=== PATIENT | female | born 1995 | race African-American/Black ===

== ENCOUNTER 2016-09-25 09:19 | Emergency (ER) | payer MEDICAID | END 2016-09-25 11:25 | disposition home or self-care (01) | LOC: D.ER 09:19 | DX: O20.0 Threatened abortion (principal); Z3A.01 Less than 8 weeks gestation of pregnancy ==

== ENCOUNTER 2016-09-28 10:30 | Emergency (ER) | payer MEDICAID | END 2016-09-28 12:18 | disposition home or self-care (01) | LOC: D.ER 10:30 | DX: O02.1 Missed abortion (principal) ==

== ENCOUNTER 2016-11-17 23:08 | Emergency (ER) | payer MEDICAID ==
[2016-11-17 23:56] LABS: APPEARANCE HAZY (CLEAR); BACTERIA NONE SEEN /hpf (NONE SEEN); BILIRUBIN NEGATIVE (NEGATIVE); COLOR PINK (YELLOW); EPITHELIAL CELLS RARE /hpf (0-5); GLUCOSE NEGATIVE (NEGATIVE); KETONE SMALL mg/dL (NEGATIVE); LEUKOCYTE ESTERASE NEGATIVE (NEGATIVE); NITRITE NEGATIVE (NEGATIVE); PROTEIN NEGATIVE (NEGATIVE); RED CELLS - URINE >50 /hpf (0-5); UROBILINOGEN NORMAL (NORMAL); WHITE CELLS - URINE 0-5 /hpf (0-5)
[2016-11-18 00:05] LABS: EOSINOPHILS 3.8 % (0-7); HEMOGLOBIN 12.1 g/dL (12-16); IMMATURE GRANULOCYTES 0.2 % (0-5); LYMPHOCYTES 40.2 % (15-50); MCH 28.5 pg (26.0-34.0); MCHC 33.6 g/dL (31.0-37.0); MCV 84.7 fL (80.0-100.0); MEAN PLATELET VOLUME 9.9 fL (7.4-10.4); NEUTROPHILS 42.8 % (40-80); RBC 4.25 10x6/uL (4.00-5.40); RDW 12.2 % (11.5-14.5); WBC 5.8 10x3/uL (4.8-10.8)
[2016-11-18 00:06] LABS: PLATELET COUNT 240 10x3/uL (130-400)
[2016-11-18 00:33] LABS: ALKALINE PHOSPHATASE 61 U/L (46-116); ALT (SGPT) 15 U/L (10-68); CALC OSMOLALITY 275 mosm/kg (275-300); CALCIUM 9.2 mg/dL (8.5-10.1); CARBON DIOXIDE 26.8 mmol/L (21.0-32.0); CHLORIDE - SERUM 104 mmol/L (98-107); CREATININE - SERUM 0.8 mg/dL (0.6-1.3); GLUCOSE 92 mg/dL (74-106); POTASSIUM - SERUM 3.8 mmol/L (3.5-5.1); PROTEIN - SERUM 7.5 g/dL (6.4-8.2); SODIUM 138 mmol/L (136-145); UREA NITROGEN 12 mg/dL (7-18); eGFR NON AFRICAN AMERICAN > 90 mL/min (90-120)
[2016-11-18 00:46] LABS: HCG - QUANTITATIVE (MATERNAL) 169 mIU/mL
== END 2016-11-18 03:36 | disposition home or self-care (01) ==
LOC: D.ER 23:08
PROVIDERS: Emergency Medicine
DX: N93.9 Abnormal uterine and vaginal bleeding, unspecified (principal); F17.200 Nicotine dependence, unspecified, uncomplicated

== ENCOUNTER 2016-12-20 09:29 | Emergency (ER) | payer MEDICAID ==
[2016-12-20 10:50] LABS: BASOPHILS 0.8 % (0-2); EOSINOPHILS 2.2 % (0-7); HEMATOCRIT 40.8 % (36.0-48.0); HEMOGLOBIN 13.5 g/dL (12-16); IMMATURE GRANULOCYTES 0.2 % (0-5); LYMPHOCYTES 31.3 % (15-50); MCH 28.7 pg (26.0-34.0); MCHC 33.1 g/dL (31.0-37.0); MCV 86.6 fL (80.0-100.0); MEAN PLATELET VOLUME 9.9 fL (7.4-10.4); MONOCYTES 11.1 % (2-11); NEUTROPHILS 54.4 % (40-80); PLATELET COUNT 276 10x3/uL (130-400); RBC 4.71 10x6/uL (4.00-5.40); RDW 12.5 % (11.5-14.5); WBC 5.1 10x3/uL (4.8-10.8)
[2016-12-20 10:57] LABS: HCG SERUM NEGATIVE (NEGATIVE)
[2016-12-20 11:37] LABS: APPEARANCE CLEAR (CLEAR); BACTERIA FEW /hpf (NONE SEEN); BILIRUBIN NEGATIVE (NEGATIVE); COLOR YELLOW (YELLOW); EPITHELIAL CELLS OCC /hpf (0-5); GLUCOSE NEGATIVE (NEGATIVE); KETONE NEGATIVE (NEGATIVE); LEUKOCYTE ESTERASE TRACE (NEGATIVE); NITRITE NEGATIVE (NEGATIVE); PROTEIN NEGATIVE (NEGATIVE); RED CELLS - URINE 0-5 /hpf (0-5); UROBILINOGEN NORMAL (NORMAL); WHITE CELLS - URINE RARE /hpf (0-5)
== END 2016-12-20 11:50 | disposition home or self-care (01) ==
LOC: D.ER 09:29
PROVIDERS: Emergency Medicine; Physician Assistant
DX: N39.3 Stress incontinence (female) (male) (principal); R10.2 Pelvic and perineal pain

== ENCOUNTER 2017-08-19 19:14 | Emergency (ER) | payer MEDICAID ==
[2017-08-19 19:58] LABS: BASOPHILS 0.3 % (0-2); HEMATOCRIT 32.5 % (36.0-48.0); HEMOGLOBIN 10.8 g/dL (12-16); IMMATURE GRANULOCYTES 6.3 % (0-5); LYMPHOCYTES 23.2 % (15-50); MCH 27.6 pg (26.0-34.0); MCHC 33.2 g/dL (31.0-37.0); MCV 83.1 fL (80.0-100.0); MEAN PLATELET VOLUME 9.8 fL (7.4-10.4); MONOCYTES 13.6 % (2-11); NEUTROPHILS 54.6 % (40-80); PLATELET COUNT 252 10x3/uL (130-400); RBC 3.91 10x6/uL (4.00-5.40); RDW 12.6 % (11.5-14.5); WBC 9.1 10x3/uL (4.8-10.8)
[2017-08-19 20:00] LABS: APPEARANCE CLEAR (CLEAR); BILIRUBIN NEGATIVE (NEGATIVE); COLOR YELLOW (YELLOW); GLUCOSE NEGATIVE (NEGATIVE); KETONE NEGATIVE (NEGATIVE); NITRITE NEGATIVE (NEGATIVE); PROTEIN NEGATIVE (NEGATIVE); SPECIFIC GRAVITY 1.015 (1.005-1.020); UROBILINOGEN NORMAL (NORMAL)
[2017-08-19 20:19] LABS: ALBUMIN 2.8 g/dL (3.4-5.0); ALKALINE PHOSPHATASE 104 U/L (46-116); ALT (SGPT) 20 U/L (10-68); BILIRUBIN - TOTAL 0.16 mg/dL (0.2-1.3); CALC OSMOLALITY 272 mosm/kg (275-300); CARBON DIOXIDE 25.1 mmol/L (21.0-32.0); CHLORIDE - SERUM 103 mmol/L (98-107); CREATININE - SERUM 0.6 mg/dL (0.6-1.3); GLUCOSE 109 mg/dL (74-106); POTASSIUM - SERUM 3.8 mmol/L (3.5-5.1); SODIUM 137 mmol/L (136-145); UREA NITROGEN 7 mg/dL (7-18); eGFR NON AFRICAN AMERICAN > 90 mL/min (90-120)
== END 2017-08-19 21:40 | disposition home or self-care (01) ==
LOC: D.ER 19:14
PROVIDERS: Emergency Medicine
DX: O26.893 Other specified pregnancy related conditions, third trimester (principal); Z3A.00 Weeks of gestation of pregnancy not specified; J11.1 Influenza due to unidentified influenza virus with other respiratory manifestations; K42.9 Umbilical hernia without obstruction or gangrene; R10.9 Unspecified abdominal pain

== ENCOUNTER → 2017-09-22 12:39 | Outpatient (CLI) | payer MEDICAID ==
[~2017-09-22 12:39] MED LIST: HYDROCODONE-APA1 TAB PO; IBUPROFEN600 MG PO; PRENATAL COMPLE1 TAB PO; ZOFRAN4 MG PO
[2017-10-06 10:45] VITALS: BMI 37.7
== END | disposition home or self-care (01) ==
LOC: D.LABREF 12:39 → D.LDO 12:39
DX: O36.5930 Maternal care for other known or suspected poor fetal growth, third trimester, not applicable or unspecified (principal); Z3A.35 35 weeks gestation of pregnancy

== ENCOUNTER → 2017-09-25 14:16 | Outpatient (CLI) | payer MEDICAID ==
[2017-10-06 10:45] VITALS: BMI 37.7
== END | disposition home or self-care (01) ==
LOC: D.LDO 14:16
DX: O36.5990 Maternal care for other known or suspected poor fetal growth, unspecified trimester, not applicable or unspecified (principal); Z3A.00 Weeks of gestation of pregnancy not specified

== ENCOUNTER → 2017-09-28 12:28 | Outpatient (CLI) | payer MEDICAID ==
[2017-10-06 10:45] VITALS: BMI 37.7
== END | disposition home or self-care (01) ==
LOC: D.LDO 12:28
DX: O36.5990 Maternal care for other known or suspected poor fetal growth, unspecified trimester, not applicable or unspecified (principal); Z3A.00 Weeks of gestation of pregnancy not specified

== ENCOUNTER → 2017-10-03 14:49 | Outpatient (CLI) | payer MEDICAID ==
[2017-10-06 10:45] VITALS: BMI 37.7
== END | disposition home or self-care (01) ==
LOC: D.LDO 14:49
DX: O36.5930 Maternal care for other known or suspected poor fetal growth, third trimester, not applicable or unspecified (principal); Z3A.37 37 weeks gestation of pregnancy

== ENCOUNTER 2017-10-06 10:24 | Inpatient (IN) | payer MEDICAID ==
[~2017-10-06] VITALS: Ht 170.2 cm; Wt 108.9 kg
[2017-10-06] VITALS (8 sets, daily range): BP systolic 116–136; BP diastolic 61–83; Ht 170.2 cm; Wt 108.9 kg
--- NOTE | ~2017-10-06 | OP ---
PATIENT NAME: DAYAMI WALLACE MEDICAL RECORD: [id number] :93 LOCATION:[id number] ADMISSION DATE:10/06/17 SURGEON: CEZAR DAVIS MD DATE OF OPERATION: 10/06/2017 PREOPERATIVE DIAGNOSES: 1. Term intrauterine at 39 weeks. 2. History of previous section. POSTOPERATIVE DIAGNOSES: 1. Term intrauterine at 39 weeks. 2. History of previous section. PROCEDURE: Repeat low transverse section. SURGEON: Cezar Davis ESTIMATED BLOOD LOSS: 1000 cc. INTRAVENOUS FLUIDS: Per anesthesia record. ANESTHESIA: Regional via spinal. FINDINGS: 1. Viable infant, Apgars 9 at 1 and 9 at 5. 2. Placenta delivered manually intact, 3-vessel cord noted. 3. Normal adnexa bilaterally. COMPLICATIONS: None apparent. SPECIMENS: Placenta and cord for gases. PROCEDURE IN DETAIL: The patient was taken to the operating room where regional anesthesia was achieved without difficulty using a spinal. At this point, the patient was prepped and draped in normal sterile fashion in the dorsal supine position. SCDs were on and functioning normally. Wilkins catheter in place and was draining freely. At this point, a repeat Pfannenstiel skin incision was made, extended downward to the underlying subcutaneous fat to level of the fascia. It was then excised in the midline using the scalpel and extended bilaterally using the Moralez scissors. The superior and inferior aspect of the fascial incision were then grasped with Edmar clamps times 2, tented upward, and sharply dissected from the underlying rectus muscle using the Moralez scissors and Bovie cautery. Rectus muscle was bluntly in the midline and the peritoneum entered sharply at the superior aspect of the incision. The peritoneal incision was then extended bilaterally using the Metzenbaum scissors and a bladder blade placed into the pelvis. A bladder flap was created by excising the anterior leaf of the broad ligament across the lower uterine segment. A low transverse incision on the uterus was made with a scalpel and extended superiorly and inferiorly using the Pelosi method. The infant's head was then delivered atraumatically followed by the body. Infant was bulb suctioned upon delivery. Cord was clamped times 2, cut and the was handed to the awaiting nursery team. Cord was obtained for gases. The placenta was removed manually intact, 3-vessel cord was noted. The uterus was then exteriorized, cleared of all clots and debris and vigorously massaged until good uterine tone was noted. The uterine incision was then repaired with 0 Vicryl in OPERATIVE REPORT [id number] DAYAMI WALLACE running locked fashion times 2 with good hemostasis. Posterior cul-de-sac was then thoroughly irrigated and uterus was replaced into the pelvis. The low transverse incision was then checked and found to be hemostatic. The anterior cul-de-sac was then thoroughly irrigated. Counts were correct times 2 for needles, sponges and instruments. The fascia was repaired with 0 loop PDS times 1. The skin was repaired with anahi. The patient tolerated procedure well, was transferred to postanesthesia recovery stable without incident. TRANSINT:[id number] Voice Confirmation ID: [id number] DOCUMENT ID: [id number] CEZAR DAVIS MD at 1723 CC: [id number] DICTATION DATE: 10/29/17 0742 AUTOMOTIVE DESIGN DRAFTER: 10/29/17 1418 DIS IN 10/08/17 [id number] [place] [id number]
[2017-10-06] MEDS ORDERED: PRENATAL COMPLE1 TAB PO (10:43)
[2017-10-06] MEDS ORDERED: ZOFRAN4 MG PO (10:44)
[2017-10-06 11:14] LABS: HEMATOCRIT 32.8 % (36.0-48.0); HEMOGLOBIN 10.7 g/dL (12-16); MCH 26.4 pg (26.0-34.0); MCHC 32.6 g/dL (31.0-37.0); MCV 80.8 fL (80.0-100.0); MEAN PLATELET VOLUME 9.7 fL (7.4-10.4); RBC 4.06 10x6/uL (4.00-5.40); RDW 13.8 % (11.5-14.5); WBC 8.6 10x3/uL (4.8-10.8)
[2017-10-06 12:03] LABS: APPEARANCE CLEAR (CLEAR); BILIRUBIN NEGATIVE (NEGATIVE); COLOR YELLOW (YELLOW); GLUCOSE NEGATIVE (NEGATIVE); KETONE NEGATIVE (NEGATIVE); NITRITE NEGATIVE (NEGATIVE); PROTEIN NEGATIVE (NEGATIVE); UROBILINOGEN NORMAL (NORMAL)
[2017-10-06 18:09] LABS: BASOPHILS 0.2 % (0-2); EOSINOPHILS 0.5 % (0-7); HEMATOCRIT 32.2 % (36.0-48.0); HEMOGLOBIN 10.4 g/dL (12-16); IMMATURE GRANULOCYTES 1.6 % (0-5); LYMPHOCYTES 16.5 % (15-50); MCH 26.3 pg (26.0-34.0); MCHC 32.3 g/dL (31.0-37.0); MCV 81.3 fL (80.0-100.0); MEAN PLATELET VOLUME 9.6 fL (7.4-10.4); MONOCYTES 11.2 % (2-11); PLATELET COUNT 241 10x3/uL (130-400); RBC 3.96 10x6/uL (4.00-5.40); RDW 13.8 % (11.5-14.5); WBC 10.2 10x3/uL (4.8-10.8)
[2017-10-07 03:04] VITALS: BP 127/71
[2017-10-07 05:14] LABS: RAPID PLASMA REAGIN Non Reactive (Non Reactive)
[2017-10-07 06:24] LABS: BASOPHILS 0.3 % (0-2); EOSINOPHILS 1.3 % (0-7); HEMATOCRIT 28.5 % (36.0-48.0); HEMOGLOBIN 9.3 g/dL (12-16); IMMATURE GRANULOCYTES 1.4 % (0-5); LYMPHOCYTES 16.9 % (15-50); MCH 26.3 pg (26.0-34.0); MCHC 32.6 g/dL (31.0-37.0); MCV 80.5 fL (80.0-100.0); MEAN PLATELET VOLUME 9.9 fL (7.4-10.4); MONOCYTES 12.7 % (2-11); NEUTROPHILS 67.4 % (40-80); PLATELET COUNT 240 10x3/uL (130-400); RBC 3.54 10x6/uL (4.00-5.40); RDW 13.6 % (11.5-14.5); WBC 9.7 10x3/uL (4.8-10.8)
[2017-10-07 07:33] VITALS: BP 107/59
[2017-10-07 15:01] VITALS: BP 114/54
[2017-10-07 19:19] VITALS: BP 124/69
[2017-10-07 23:06] VITALS: BP 136/63
[2017-10-08 07:32] VITALS: BP 134/74
[2017-10-08] MEDS ORDERED: IBUPROFEN600 MG PO (08:22)
[2017-10-08] MEDS ORDERED: HYDROCODONE-APA1 TAB PO (08:23)
== END 2017-10-08 12:43 | disposition home or self-care (01) | DRG 765 ==
LOC: D.LD 10:24 → D.SDCHOLD 12:00 → D.LD 10-08 12:43
PROVIDERS: Obstetrics & Gynecology
PROC: 10D00Z1 Extraction of Products of Conception, Low, Open Approach (ICD-10-PCS; principal; 2017-10-06 12:00)
DX: O36.5930 Maternal care for other known or suspected poor fetal growth, third trimester, not applicable or unspecified (principal); O99.324 Drug use complicating childbirth; Z3A.37 37 weeks gestation of pregnancy; Z37.0 Single live birth; O99.824 Streptococcus B carrier state complicating childbirth; F12.90 Cannabis use, unspecified, uncomplicated; O34.211 Maternal care for low transverse scar from previous cesarean delivery

== ENCOUNTER 2018-01-18 12:59 | Emergency (ER) | payer MEDICAID ==
[~2018-01-18] VITALS: Ht 170.2 cm; Wt 100.0 kg
[2018-01-18 13:42] VITALS: BP 108/68; Ht 170.2 cm; Wt 100.0 kg
[2018-01-18] MEDS ORDERED: MIRENA20 MCG/24 VG (13:43)
[2018-01-18 14:15] LABS: BASOPHILS 0.8 % (0-2); EOSINOPHILS 3.6 % (0-7); HEMOGLOBIN 12.8 g/dL (12-16); IMMATURE GRANULOCYTES 0.3 % (0-5); LYMPHOCYTES 27.3 % (15-50); MCH 26.2 pg (26.0-34.0); MCHC 32.8 g/dL (31.0-37.0); MCV 79.9 fL (80.0-100.0); MEAN PLATELET VOLUME 9.6 fL (7.4-10.4); MONOCYTES 10.6 % (2-11); NEUTROPHILS 57.4 % (40-80); RBC 4.88 10x6/uL (4.00-5.40); RDW 14.1 % (11.5-14.5); WBC 8.6 10x3/uL (4.8-10.8)
[2018-01-18 14:20] LABS: PLATELET COUNT 334 10x3/uL (130-400)
[2018-01-18 14:22] LABS: HCG URINE NEGATIVE (NEGATIVE)
[2018-01-18 14:27] LABS: APPEARANCE CLEAR (CLEAR); BILIRUBIN NEGATIVE (NEGATIVE); COLOR YELLOW (YELLOW); GLUCOSE NEGATIVE (NEGATIVE); KETONE NEGATIVE (NEGATIVE); NITRITE NEGATIVE (NEGATIVE); PROTEIN TRACE mg/dL (NEGATIVE); SPECIFIC GRAVITY 1.015 (1.005-1.020)
[2018-01-18 14:29] LABS: ALBUMIN 3.7 g/dL (3.4-5.0); ALKALINE PHOSPHATASE 116 U/L (46-116); ALT (SGPT) 17 U/L (10-68); BILIRUBIN - TOTAL 0.31 mg/dL (0.2-1.3); CALC OSMOLALITY 278 mosm/kg (275-300); CALCIUM 9.8 mg/dL (8.5-10.1); CARBON DIOXIDE 29.7 mmol/L (21.0-32.0); CHLORIDE - SERUM 106 mmol/L (98-107); CREATININE - SERUM 0.9 mg/dL (0.6-1.3); GLUCOSE 83 mg/dL (74-106); POTASSIUM - SERUM 4.4 mmol/L (3.5-5.1); PROTEIN - SERUM 8.1 g/dL (6.4-8.2); SODIUM 141 mmol/L (136-145); UREA NITROGEN 11 mg/dL (7-18); eGFR NON AFRICAN AMERICAN 81 mL/min (90-120)
[2018-01-18 14:30] LABS: EPITHELIAL CELLS 0-5 /hpf (0-5)
[2018-01-18 14:31] LABS: BACTERIA FEW /hpf (NONE SEEN); MUCUS <1+ /lpf (NONE SEEN)
[2018-01-21 12:08] LABS: CHLAMYDIA TRACHOMATIS, NAA Negative (Negative)
== END 2018-01-18 19:22 | disposition left against medical advice (07) ==
LOC: D.ER 12:59
PROVIDERS: Family Medicine
DX: R10.31 Right lower quadrant pain (principal); R10.2 Pelvic and perineal pain; F17.200 Nicotine dependence, unspecified, uncomplicated